=== PATIENT | male | born 2000 | race Caucasian/White ===

== ENCOUNTER 2022-07-24 16:03 | Emergency (ER) | payer OTHER ==
[2022-07-24 16:13] VITALS: BP 135/74
--- NOTE | 2022-07-24 16:19 | ED Physician Documentation ---
PD HPI LOWER EXT INJURY - Stated complaint Stated Complaint: Right knee pain - Chief complaint Chief Complaint: Trauma Ext - Additional information Additional information: 22-year-old gentleman had an ACL reconstruction about 3 years ago. Today he was in PT and thinks he just landed wrong and then felt a pop in the knee and now has more severe pain with swelling. He cannot walk on it. No other injuries. PD PAST MEDICAL HISTORY - Present Medications Home Medications: Ambulatory Orders Medication Instructions Recorded Confirmed HYDROcod/ACETAM 5/325 [Bernie 5/325] 1 - 2 tab PO Q6H PRN #15 tablet 07/24/22 Meloxicam [Mobic] 7.5 mg PO DAILY 07/24/22 07/24/22 - Allergies Allergies/Adverse Reactions: Allergies Allergy/AdvReac Type Severity Reaction Status Date / Time No Known Drug Allergies Allergy Verified 07/24/22 16:11 PD ED PE NORMAL - Vitals Vital signs reviewed: Yes - General General: Alert and oriented X 3, No acute distress - Extremities Extremities: Other (There is an effusion of the right knee. He is mildly tender anteriorly. He has significant pain with grind testing. Ligamentous testing seems grossly intact.) - Neuro Neuro: Alert and oriented X 3, Normal speech Results - Vitals Vitals: Vital Signs - 24 hr 07/24/22 16:09 Temperature 36.6 C Heart Rate 81 Respiratory 16 Rate Blood Pressure 135/74 H O2 Saturation 100 Oxygen O2 Source Room air - Rads (name of study) 4 view x-ray right knee grossly negative Relevant Findings:: Final report received, EMP independent interpretation of test PD Medical Decision Making - ED course ED course: 22-year-old gentleman with history of prior ACL repair presents with a newly knee injury with an effusion. Most consistent with a meniscus injury on exam, x-ray negative. 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 Departure - Departure Disposition: 01 Home, Self Care Clinical Impression: Internal derangement of right knee Condition: Good Record reviewed to determine appropriate education?: Yes Instructions: ED Meniscal Injury Knee Poss Prescriptions: HYDROcod/ACETAM 5/325 [Bernie 5/325] 1 - 2 tab PO Q6H PRN #15 tablet PRN Reason: Pain Comments: Follow-up with your flight surgeon will for consideration for either referral to orthopedics or MRI. Return for new or worsening symptoms. You do not need to wear the knee brace when you are sitting or bathing but should be on when you are up and around and walking. [place] am prescribing a short course of narcotic pain medication for you. These are potentially dangerous and addictive medications that should be used carefully. These medications may constipate you. Take an monq-ioz-ccebcxi stool softener (docusate) twice daily with plenty of water while taking these medications. If you go 24 hours without a bowel movement, take jcqp-lxp-reszhyu miralax, per package instructions. Do not drink or drive while taking these medications. If you received narcotic or sedating medications while in the emergency department, do not drive for 24 hours. Store this medication in a safe, secure place and out of reach of children. It is a violation of federal law to give or sell this medication to another person or to use in a manner other than prescribed. The ED will not refill narcotic prescriptions, including prescriptions lost or stolen. To dispose of unwanted medications: 1. [facility] at [address] in [place] has a medication drop box. They accept prescription medications (in pill form) Thursday through Thursday 9:00 a.m. to 5:00 p.m. 2. The [facility] [employer] accepts prescription medications (in pill form only) for disposal year round. Call for more information. 3. Contact the [facility] for the next [facility] sponsored prescription drug collection event. , [phone], or [phone]; Note that many narcotic pain relievers also contain Tylenol/acetaminophen. Please ensure that your total dose of acetaminophen from all sources does not exceed 3 g (3000 mg) per day.
--- NOTE | 2022-07-24 16:48 | XRAY Report ---
PROCEDURE: Knee 4 View RT INDICATIONS: knee inj TECHNIQUE: 3 views of the right knee(s) were acquired. COMPARISON: None. FINDINGS: Bones: No fractures or dislocations. No suspicious bony lesions. Surgical changes of likely a grant or ACL repair are noted. Soft tissues: No knee joint effusion. No suspicious soft tissue calcifications or masses. IMPRESSION: No visualized acute fracture or dislocation. However, occult injury cannot be excluded. Recommend maria g rt interval imaging follow-up in 7-10 days as clinically indicated for additional evaluation. Reviewed by: Padmini Obrien MD on 07/24/2022 4:47 PM PDT Approved by: Padimni Obrien MD on 07/24/2022 4:47 PM PDT Station ID: [id number]
[2022-07-24] MEDS ORDERED: HYDROcod/ACETAM 5/325 MG TABLET PO STA (16:53)
== END 2022-07-24 17:17 | disposition home or self-care (01) ==
LOC: ED 16:03
DX: M23.91 Unspecified internal derangement of right knee (principal)
CPT/HCPCS: 73564; 99283; 99284; A9270

== ENCOUNTER 2022-08-07 14:27 | Outpatient (CLI) | payer OTHER ==
--- NOTE | 2022-08-07 16:40 | MRI Report ---
PROCEDURE: KNEE WO - RT INDICATIONS: RIGHT KNEE PAIN TECHNIQUE: Noncontrast sagittal PD fast spin echo and T2 fast spin echo with fat saturation, sagittal 3-D gradie nt sequence with fat saturation; coronal T1 spin echo and PD fast spin echo with fat saturation, and axial PD fast spin echo with fat saturation through the knee. COMPARISON: Plain films dated 07/24/2022 FINDINGS: Image quality: Excellent. Menisci: Medial meniscus is intact. Linear horizontal high T2 signal intensity traverses the inner, m iddle, and peripheral thirds of the posterior horn lateral meniscus, demonstrating inferior articular surface extension. Cruciate ligaments: The anterior cruciate ligament graft and posterior cruciate ligaments appear int act. Medial structures: The medial collateral ligament appears intact. Visualized portions of the pes ans erinus tendons appear normal. No abnormal bursal fluid. Lateral structures: The lateral collateral ligament, long and short heads of the biceps femoris tend on appear intact. The popliteus tendon appears normal. Iliotibial band appears normal. Anterior structures: The quadriceps and patellar tendons appear intact. Patellar alignment is franki l. No femoral trochlear dysplasia or ventral trochlear prominence. No edema in the infrapatellar fa t pad. Bones and cartilage: There is moderate ill-defined T2 signal elevation within the posterior weightbea ring aspects of the lateral femoral condyle and lateral tibial plateau. Mild tricompartment periartic ular osteophyte formation. Severe articular cartilage loss overlies the mid and posterior weightbeari ng aspects of the lateral femoral condyle. Mild articular cartilage loss diffusely overlies the weigh tbearing aspects of the medial femoral condyle and medial tibial plateau. Joint space: There is phys iologic knee joint fluid. No Wilkins's cyst. Normal appearing synovial plicae are incidentally noted. IMPRESSION: 1. Intact ACL graft. 2. Lateral meniscal tearing. 3. Contusion versus degenerative marrow edema within the lateral femoral condyle and lateral tibial p lateau posteriorly. 4. Tricompartmental osteoarthritis with associated articular cartilage loss, worst in the lateral com partment. Reviewed by: Nehemiah Armendariz MD on 08/07/2022 4:39 PM PDT Approved by: Nehemiah Armendariz MD on 08/07/2022 4:39 PM PDT Station ID: [id number]
== END 2022-08-07 14:28 | disposition home or self-care (01) ==
LOC: DI 14:27
PROVIDERS: ATTEND Orthopaedic Surgery
DX: S83.281A Other tear of lateral meniscus, current injury, right knee, initial encounter (principal); M17.11 Unilateral primary osteoarthritis, right knee; M94.261 Chondromalacia, right knee